=== PATIENT | female | born 1955 | race Caucasian/White ===

== ENCOUNTER 2019-06-09 08:03 | Emergency (ER) | payer BC, OTHER ==
[~2019-06-09] VITALS: Ht 149.9 cm; Wt 52.0 kg
[2019-06-09] MEDS ORDERED: ACETAMINOPHEN 500MG TABLET PO ONE (09:15)
[2019-06-09 10:26] VITALS: BP 123/71
== END 2019-06-09 10:27 | disposition home or self-care (01) ==
LOC: ER 08:03
DX: M25.561 Pain in right knee (principal)
CPT/HCPCS: 73562; 99283

== ENCOUNTER 2019-07-03 07:14 | Emergency (ER) | payer OTHER ==
[~2019-07-03] VITALS: Ht 149.9 cm; Wt 58.0 kg
[2019-07-03 08:14] VITALS: BP 128/73
[2019-07-03] MEDS ORDERED: KETOROLAC 15MG/ML VIAL IM ONE (08:15)
== END 2019-07-03 08:31 | disposition home or self-care (01) ==
LOC: ER 07:14
DX: M25.561 Pain in right knee (principal); H00.013 Hordeolum externum right eye, unspecified eyelid; E11.9 Type 2 diabetes mellitus without complications; Z98.1 Arthrodesis status
CPT/HCPCS: 96372; 99283; J1885